=== PATIENT | female | born 1940 | race Caucasian/White ===

== ENCOUNTER 2019-12-11 13:01 | Outpatient (CLI) | payer OTHER, SELFPAY ==
--- NOTE | ~2019-12-11 | CT_ITS ---
EXAMINATION: CT abdomen wo con DATE: 12/11/2019 13:27 INDICATION: Elevated alkaline phosphatase, concern for kidney stones TECHNIQUE: Computed tomography (CT) of the abdomen was performed without intravenous contrast. The do se-length product (DLP) was 358.98 mGy-cm. Automated exposure control and iterative reconstruction te chnique were employed. COMPARISON: 06/05/2017 FINDINGS: The lung bases are clear. The heart size is normal. There is a large hiatal hernia. There h as been interval cholecystectomy. The liver, spleen, pancreas, and adrenal glands are normal. The kid neys are unremarkable. No urinary tract calculi are identified. There are no pathologically enlarged abdominal lymph nodes. There is no free intraperitoneal gas or evidence of bowel obstruction. There i s moderate lumbar spondylosis. IMPRESSION: 1. No CT correlate for the patient's symptoms. 2. Interval cholecystectomy. 3. Large hiatal hernia. Reviewed, dictated and finalized at location A.
== END 2019-12-11 13:02 | disposition home or self-care (01) ==
LOC: ANHIMG 13:05
PROVIDERS: PCP Internal Medicine; Visit Provider Internal Medicine
DX: R74.8 Abnormal levels of other serum enzymes (principal); Z90.49 Acquired absence of other specified parts of digestive tract; K44.9 Diaphragmatic hernia without obstruction or gangrene
CPT/HCPCS: 74150